=== PATIENT | female | born 1995 | race Two or more races ===

== ENCOUNTER 2016-04-13 01:57 | Emergency (ER) | payer MEDICAID ==
--- NOTE | 2016-04-13 02:10 | EDPHY ---
H & P HPI/ROS: HPI CHIEF COMPLAINT: Right adnexal pain HISTORY OF PRESENT ILLNESS: This patient very pleasant 20-year-old female, who I saw and evaluated for abdominal pain on 03/09/2016 diagnosed ovarian cyst. Patient usually follows up at [facility]. She presents emergency room with severe sudden onset sharp stabbing right adnexal pain with minimal vaginal bleeding. Patient tells me that she has irregular menstrual. She denies being . She tells me that she has had an ovarian cyst on the right side has been followed. She states around midnight tonight she developed sudden onset sharp stabbing pain with ongoing right adnexal pain. No urinary symptoms, no back pain, no right lower quadrant pain, no chest pain or shortness of breath. No fever. No nausea or vomiting. No diarrhea she describes the pain as sharp stabbing right adnexal 6/10 consistent with previous right ovarian cyst. Past Medical History: Ovarian cyst, Past Surgical History: Social History: denies use of drugs alcohol tobacco products Family History:Noncontributory ROS REVIEW OF SYSTEMS: A comprehensive 10 point review of systems is otherwise negative aside from elements mentioned in the history of present illness. Exam Constitutional triage nursing summary reviewed, vital signs reviewed, awake/ alert. Eyes normal conjunctivae and sclera, EOMI, PERRLA. HENT normal inspection, atraumatic, moist mucus membranes, no epistaxis, neck supple/ no meningismus, no raccoon eyes. Respiratory clear to auscultation bilaterally, normal breath sounds, no respiratory distress, no wheezing. Cardiovascular rate normal, regular rhythm, no murmur, no edema, distal pulses normal. Gastrointestinal soft abdomen however there is tenderness in the right adnexa there is no guarding or peritoneal signs, normal bowel sounds, no distension, no pulsatile mass. Genitourinary no CVA tenderness. Musculoskeletal no midline vertebral tenderness, full range of motion, no calf swelling, no tenderness of extremities, no meningismus, good pulses, neurovascularly intact. Skin pink, warm, & dry, no rash, skin atraumatic. Neurologic awake, alert and oriented x 3, AAOx3, moves all 4 extremities equally, motor intact, sensory intact, CN II-XII intact, normal cerebellar, normal vision, normal speech. Psychiatric normal mood/affect. Heme/Lymph/Immune no lymphadenopathy. Differential Diagnosis: Includes but is not limited to in a particular order, ruptured ovarian cyst, hemoperitoneum, ovarian torsion, doubt acute appendicitis Medical Decision Making: This patient had an IV established obtain blood work, urinalysis, test, she will have an ultrasound given that she is tender in her right adnexa. Re-evaluation: Ultrasound of the Pelvis. The results of the study are normal pelvic ultrasound, normal ovaries, no ovarian cyst, no torsion, no free fluid . I discussed the results of this study with the radiologist Dr. Zuniga 0327: re-evaluation at this time this patient is improved with IV Dilaudid she does still have some right adnexal right lower quadrant pain her ultrasound has been reviewed is unremarkable there is no evidence of ovarian cyst, free fluid or abnormality of her pelvis. Given her right lower quadrant pain will perform a CT abdomen pelvis with IV contrast to rule out acute appendicitis. CT scan of the abdomen pelvis with IV contrast. The results of the study are negative for any acute inflammatory process specifically The study was read by Dr. Zuniga I viewed the images myself on the PACS system. 0410: Re-examination at this time is patient is resting comfortably no acute distress abdomen is soft nontender no guarding or peritoneal signs ultrasound is unremarkable, CT scan unremarkable. Urinalysis does indicate she has UTI will place on Keflex she did receive 1 g IV Rocephin here in emergency room. Source: Patient - Medical/Surgical History Hx Asthma: No Hx Chronic Respiratory Disease: No Hx Diabetes: No Hx Cardiac Disease: No Hx Renal Disease: No Hx Cirrhosis: No Hx Alcoholism: No Hx HIV/AIDS: No Hx Splenectomy or Spleen Trauma: No Other PMH: C-SECT - Social History Smoking Status: Never smoked Constitutional: Initial Vital Signs Temperature (C) 36.5 C 04/13/16 02:00 Heart Rate 100 04/13/16 02:00 Respiratory Rate 20 04/13/16 02:00 Blood Pressure 126/85 H 04/13/16 02:00 O2 Sat (%) 95 04/13/16 02:00 O2 Delivery Mode Room Air Allergies/Adverse Reactions: peanut Allergy (Verified 03/09/16 11:23) Home Medications: Medication Instructions Recorded Ondansetron Odt [Zofran Odt 4 mg 4 mg PO Q4 PRN #20 tab 03/06/16 (RX)] Cephalexin [Keflex] 500 mg PO Q6H #28 cap 03/09/16 Hydrocodon-Acetaminophen 5-325 03/09/16 Cephalexin [Keflex] 500 mg PO Q6H #28 cap 04/13/16 Medical Decision Making - Data Points Laboratory Results: Laboratory Results 04/13/16 02:30 04/13/16 02:30 04/13/16 02:30 WBC 8.79 10^3/uL (3.80-9.50) RBC 5.13 10^6/uL (4.18-5.33) Hgb 16.4 H g/dL (12.6-16.3) Hct 48.3 H % (38.0-47.0) MCV 94.2 fL (81.5-99.8) MCH 32.0 pg (27.9-34.1) MCHC 34.0 g/dL (32.4-36.7) RDW 11.9 % (11.5-15.2) Plt Count 217 10^3/uL (150-400) MPV 9.8 fL (8.7-11.7) Neut % (Auto) 57.2 % (39.3-74.2) Lymph % (Auto) 33.7 % (15.0-45.0) [place] % (Auto) 6.0 % (4.5-13.0) Eos % (Auto) 1.9 % (0.6-7.6) Baso % (Auto) 0.7 % (0.3-1.7) Nucleat RBC Rel Count 0.0 % (0.0-0.2) Absolute Neuts (auto) 5.03 10^3/uL (1.70-6.50) Absolute Lymphs (auto) 2.96 10^3/uL (1.00-3.00) Absolute Monos (auto) 0.53 10^3/uL (0.30-0.80) Absolute Eos (auto) 0.17 10^3/uL (0.03-0.40) Absolute Basos (auto) 0.06 10^3/uL (0.02-0.10) Absolute Nucleated RBC 0.00 10^3/uL (0-0.01) Immature Gran % 0.5 % (0.0-1.1) Immature Gran # 0.04 10^3/uL (0.00-0.10) PT 12.6 SEC (12.0-15.0) INR 0.95 (0.83-1.16) APTT 27.6 SEC (23.0-38.0) Sodium 151 H mEq/L (134-144) Potassium 3.6 mEq/L (3.5-5.2) Chloride 111 H mEq/L (97-110) Carbon Dioxide 20 L mEq/l (22-31) Anion Gap 20 mEq/L (8-16) BUN 14 mg/dL (7-23) Creatinine 0.6 mg/dL (0.6-1.0) Estimated GFR > 60 Glucose 106 H mg/dL (70-100) Calcium 9.7 mg/dL (8.5-10.4) Total Bilirubin 0.5 mg/dL (0.1-1.4) Conjugated Bilirubin 0.2 mg/dL (0.0-0.5) Unconjugated Bilirubin 0.3 mg/dL (0.0-1.1) AST 23 IU/L (14-46) ALT 40 IU/L (9-52) Alkaline Phosphatase 124 IU/L (38-126) Total Protein 8.6 H g/dL (6.3-8.2) Albumin 5.1 H g/dL (3.5-5.0) Lipase 118.0 IU/L (23-300) Beta HCG, Qual NEGATIVE Urine Color YELLOW Urine Appearance HAZY Urine pH 5.0 (5.0-7.5) Ur Specific [place] 1.010 (1.002-1.030) Urine Protein NEGATIVE (NEGATIVE) Urine Ketones NEGATIVE (NEGATIVE) Urine Blood 3+ H (NEGATIVE) Urine Nitrate NEGATIVE (NEGATIVE) Urine Bilirubin NEGATIVE (NEGATIVE) Urine Urobilinogen NEGATIVE EU (0.2-1.0) Ur Leukocyte Esterase 1+ H (NEGATIVE) Urine RBC 3-5 H /hpf (0-3) Urine WBC 3-5 H /hpf (0-3) Ur Epithelial Cells TRACE /lpf (NONE-1+) Urine Bacteria TRACE H /hpf (NONE SEEN) Urine Mucus TRACE /lpf (NONE-1+) Ur Culture Indicated? INDICATED H (NI) Urine Glucose NEGATIVE (NEGATIVE) Medications Given: Discontinued Medications Hydromorphone HCl (Dilaudid) 1 mg IVP EDNOW ONE Stop: 04/13/16 02:16 Last Admin: 04/13/16 02:35 Dose: 1 mg Sodium Chloride (Ns) 1,000 mls @ 0 mls/hr IV ONCE ONE PRN Reason: Wide Open Stop: 04/13/16 02:16 Last Admin: 04/13/16 02:35 Dose: 1,000 mls Ceftriaxone Sodium/Dextrose (Rocephin 1 Gm (Premix)) 50 mls @ 100 mls/hr IV EDNOW ONE PRN Reason: Protocol Stop: 04/13/16 03:56 Last Admin: 04/13/16 03:34 Dose: 50 mls Ondansetron HCl (Zofran) 4 mg IVP EDNOW ONE Stop: 04/13/16 02:16 Last Admin: 04/13/16 02:30 Dose: 4 mg Departure - Departure Disposition: Home, Routine, Self-Care Clinical Impression: Abdominal pain Qualifiers: Abdominal location: right lower quadrant Qualifier Code: (R10.31) Right lower quadrant pain UTI (urinary tract infection) Qualifiers: Urinary tract infection type: acute cystitis Hematuria presence: with hematuria Qualifier Code: (N30.01) Acute cystitis with hematuria Condition: Good Instructions: Abdominal Pain (ED) Additional Instructions: 1. Return emergency room if develops any worsening abdominal pain, fever, vomiting. Prescriptions: Cephalexin [Keflex] 500 mg PO Q6H #28 cap
[2016-04-13 02:14] VITALS: O2SAT 95
[2016-04-13] MEDS ORDERED: HYDROmorphONE/DILAUDID 1 MG/ML SYR IVP ONE (02:15)
[2016-04-13] MEDS ORDERED: ONDANSETRON 4 MG/2 ML VIAL IVP ONE (02:15)
[2016-04-13] MEDS ORDERED: NS 1,000 ML IV ONE (02:15)
[2016-04-13 02:39] LABS: COLOR YELLOW; LEUKOCYTE ESTERASE,URINE 1+ (NEGATIVE); NITRITE,URINE NEGATIVE (NEGATIVE)
[2016-04-13 02:43] LABS: % IMMATURE GRANULYOCYTES 0.5 % (0.0-1.1); ABSOLUTE IMMATURE GRANULOCYTES 0.04 10^3/uL (0.00-0.10); ADD DIFF? NO; ADD MORPH? NO; ADD SCAN? NO; ATYPICAL LYMPHOCYTE FLAG 10 (0-99); FRAGMENT RBC FLAG 0 (0-99); HEMATOCRIT 48.3 % (38.0-47.0); HEMOGLOBIN 16.4 g/dL (12.6-16.3); LEFT SHIFT FLG 0 (0-99); LIPEMIA HEMOLYSIS FLAG 90 (0-99); MEAN CELL VOLUME 94.2 fL (81.5-99.8); MEAN PLATELET VOLUME 9.8 fL (8.7-11.7); PLATELET CLUMPS FLAG 0 (0-99); PLATELET COUNT 217 10^3/uL (150-400); RED BLOOD CELL COUNT 5.13 10^6/uL (4.18-5.33); RED CELL DISTRIBUTION WIDTH 11.9 % (11.5-15.2)
[2016-04-13 02:48] LABS: BACTERIA TRACE /hpf (NONE SEEN); MUCUS TRACE /lpf (NONE-1+)
[2016-04-13 03:16] LABS: APTT 27.6 SEC (23.0-38.0); INR 0.95 (0.83-1.16); PROTIME(PATIENT) 12.6 SEC (12.0-15.0)
[2016-04-13 03:29] LABS: ALANINE AMINOTRANSFERASE 40 IU/L (9-52); ALBUMIN 5.1 g/dL (3.5-5.0); ALKALINE PHOSPHATASE 124 IU/L (38-126); ANION GAP 20 mEq/L (8-16); ASPARTATE AMINOTRANSFERASE 23 IU/L (14-46); BILIRUBIN,TOTAL 0.5 mg/dL (0.1-1.4); BILIRUBIN-CONJUGATED 0.2 mg/dL (0.0-0.5); BILIRUBIN-UNCONJUGATED 0.3 mg/dL (0.0-1.1); CALCIUM 9.7 mg/dL (8.5-10.4); CARBON DIOXIDE 20 mEq/l (22-31); CHLORIDE 111 mEq/L (97-110); CREATININE 0.6 mg/dL (0.6-1.0); GLOMERULAR FILTRATION RATE > 60; GLUCOSE 106 mg/dL (70-100); POTASSIUM 3.6 mEq/L (3.5-5.2); SODIUM 151 mEq/L (134-144); TOTAL PROTEIN 8.6 g/dL (6.3-8.2)
[2016-04-13] MEDS ORDERED: IOPAMIDOL (ISOVUE-300) 50 ML VIAL IV ONE (03:38)
[2016-04-13 04:12] VITALS: BP 111/79; PULSE 113; RESP 18
[2016-04-13 04:23] VITALS: TEMP 99
--- NOTE | 2016-04-13 14:22 | US ---
Pelvic Ultrasound April 13, 2016 Indication: Right lower quadrant pain. History of ovarian cyst. Technique: Transabdominal and transvaginal imaging. Findings Transabdominal imaging: The anteverted uterus is normal size, measuring 7.9 cm in length x 4.5 x 3.2 cm. No adnexal mass or free fluid. Transvaginal imaging: The ovaries are normal size with small peripheral follicles and normal blood f low on color Doppler imaging. No ovarian cyst or adnexal mass. The right ovary measures 3.4 x 2.3 x 1 .8 cm. The left ovary measures 3.2 x 1.9 x 1.7 cm. The uterus has a normal homogeneous myometrium. No uterine leiomyoma. The endometrial lining is thin (6 mm). Impression: 1. Normal ovaries. No ovarian cyst or evidence of torsion. 2. No free fluid. 3. Normal uterus. The study was performed as an emergency on-call case and discussed by telephone with Dr. Redd at 3 :00 a.m. The final interpretation is concordant with the original communication.
--- NOTE | 2016-04-13 14:34 | CT ---
CT Scan of the Abdomen and Pelvis (With Contrast) April 13, 2016 Indication: Right lower quadrant pain. Technique: No oral or rectal contrast. 90 mL of Isovue 300 were given intravenously by machine power injection. Multidetector helical CT imaging was performed from the diaphragm to the symphysis pubis . Dose reduction techniques were utilized. Findings: Well visualized normal appendix. Normal ovaries and uterus. No free fluid, abscess, adnexal mass, pneumoperitoneum, free fluid, or lymphadenopathy. The liver, spleen, pancreas, gallbladder, and kidneys are normal. No nephrolithiasis, ureteral calcul i, or hydroureteronephrosis. Urinary bladder is normal. Lung bases are clear. The heart size is normal. The abdominal aorta is normal caliber. Normal bones. Impression: 1. Normal appendix. 2. No free fluid or evidence of ovarian cyst. 3. No hydronephrosis or ureteral calculi. The study was performed as an emergency on-call case and discussed by telephone with Dr. Redd at 4 :09 a.m. The final interpretation is concordant with the original communication.
== END 2016-04-13 04:21 | disposition home or self-care (01) ==
DX: N30.01 Acute cystitis with hematuria (principal); B96.89 Other specified bacterial agents as the cause of diseases classified elsewhere; Z91.010 Allergy to peanuts
CPT/HCPCS: 96365; J0696; J1170; J2405; Q9967

== ENCOUNTER 2016-05-21 13:38 | Observation (INO) | payer MEDICAID ==
[2016-05-21] MEDS ORDERED: NS 1,000 ML IV ONE (13:59)
[2016-05-21] MEDS ORDERED: ONDANSETRON 4 MG/2 ML VIAL IVP ONE (14:00)
[2016-05-21] MEDS ORDERED: HYDROmorphONE/DILAUDID 1 MG/ML SYR IVP ONE ×2 (14:07→17:41)
--- NOTE | 2016-05-21 14:13 | EDPHY ---
H & P Stated Complaint: RLQ abd pain n/v Source: Patient Exam Limitations: No limitations - Personal History LMP (Females 10-55): Extended Cycle BCP/Inj Current Tetanus/Diphtheria Vaccine: Yes - Medical/Surgical History Hx Asthma: No Hx Chronic Respiratory Disease: No Hx Diabetes: No Hx Cardiac Disease: No Hx Renal Disease: No Hx Cirrhosis: No Hx Alcoholism: No Hx HIV/AIDS: No Hx Splenectomy or Spleen Trauma: No Other PMH: C-SECT - Family History Significant Family History: No pertinent family hx - Social History Smoking Status: Never smoked Alcohol Use: None Drug Use: None Time Seen by Provider: 05/21/16 14:09 HPI/ROS: HPI: 20-year-old female presents to emergency department with chief concern right-sided abdominal pain 7/10 that awoke her from sleep last night. Reports associated nausea and vomiting. Reports associated low flank pain bilaterally. Denies fever, chills, URI symptoms, shortness of breath, chest pain, diarrhea, urinary symptoms. Significant past medical history . She is 1 para 1. LMP March 2016. Reports irregular periods. Has Nexplanon. Last p.o. crackers at 9:00 a.m. today. ROS:10 point review of systems is negative other than as stated in HPI (Francy Aaron) - Physical Exam Exam: Temp 36.6, heart rate 100, respiratory rate 20, blood pressure 103/75, 97% on room air General: Awake, alert, calm, cooperative. No acute distress. Head: Normalocephalic. Atraumatic. EENT: PERRLA. EOMI. No pallor or injection. Anicteric. No nystagmus. No injection. Neck: Supple, nontender. No lymphadenopathy. Full range of motion. No meningismus. Respiratory: Breathing unlabored. Breath sounds equal bilaterally and clear to auscultation. No adventitious sounds. CV: Chest nontender, atraumatic. Heart rate regular. No murmur, distal pulses 2+ bilaterally. Brisk cap refill all extremities. GI: Abdomen soft, right upper quadrant, right middle, and right lower quadrant tenderness. Positive rebound. Positive Rovsing. Bowel sounds normoactive and positive x4 quadrants. : Bilateral low flank pain to percussion. Neuro: Alert. Oriented x 3. Speech clear. Nonfocal cranial nerves throughout. Sensation intact all extremities. Skin: Skin warm, dry, intact. No rashes, abrasions, or lacerations. Skin turgor normal. Extremities: Full range of motion in all 4 extremities. Strength 5+ all extremities. (Francy Aaron) Constitutional: Initial Vital Signs Temperature (C) 36.6 C 05/21/16 13:54 Heart Rate 100 05/21/16 13:54 Respiratory Rate 20 05/21/16 13:54 Blood Pressure 103/75 05/21/16 13:54 O2 Sat (%) 97 05/21/16 13:54 O2 Delivery Mode Nasal Cannula O2 (L/minute) 2 Allergies/Adverse Reactions: peanut Allergy (Verified 05/21/16 13:53) Home Medications: Medication Instructions Recorded Acetaminophen [Tylenol ES 500 mg 500 mg PO Q6 PRN 05/21/16 (*)] Etonogestrel [Nexplanon] 68 mg SQ AD 05/21/16 Medical Decision Making - Diagnostics Imaging: Abdomen Retroperitoneal Renal Ultrasound: Indications: Right flank pain Findings: No hydronephrosis, shadowing renal calculi, focal cortical abnormalities or perinephric fluid. Impression: No hydronephrosis. Small post void residual. Dictated By: Daniel Sow MD Ultrasound of the Abdomen, Limited History: Persistent right upper quadrant pain. Impression: Normal right upper quadrant ultrasound. Dictated By: Daniel Sow MD (Francy Aaron) Procedures: 1410: 20-year-old female presents to emergency department with chief concern right-sided abdominal pain. Onset suddenly overnight awakening her from sleep associated with nausea and vomiting. Denies urinary burning or frequency. Only significant past medical history is . IV started. Normal saline hung. Patient given 4 mg IV Zofran, 1 mg IV Dilaudid, normal saline. Urinalysis, labs pending. 1500: White count 8510 with 78.7% neutrophils. Sodium 145, otherwise metabolic panel unremarkable. LFTs and lipase negative. Urinalysis shows 1+ blood, 1-3 RBCs, 1-3 WBCs. Negative nitrate or esterase. Given 4 mg morphine for ongoing pain. Will check a right upper quadrant ultrasound as well as a retroperitoneal to evaluate her right kidney. 1700: Renal ultrasound and right upper quadrant ultrasound negative. Pain 7/ 10. Given 30 mg IV Toradol. 1740: Pain 8/10 given 1 mg additional Dilaudid. Patient will be admitted for pain control. Report given to Neville Garland MD. Bed requested. 1750: Vitals remained stable. (Francy Aaron) Differential Diagnosis: Differential diagnosis includes but is not limited to ectopic , ovarian cyst, ovarian torsion, appendicitis, cholecystitis, kidney stone, pyelonephritis, endometriosis (Francy Aaron) Other Provider: This patient was seen and personally assessed by me as the supervising physician for Francy Aaron NP. Abdomen is soft, right upper quadrant tenderness , no peritoneal signs. I agree with Farncy Aaron's plan. (Catherine Prado) - Data Points Laboratory Results: Laboratory Results 05/21/16 14:21 05/21/16 14:21 05/21/16 05/21/16 05/21/16 14:40 14:40 14:21 WBC RBC Hgb Hct MCV MCH MCHC RDW Plt Count MPV Neut % (Auto) Lymph % (Auto) [place] % (Auto) Eos % (Auto) Baso % (Auto) Nucleat RBC Rel Count Absolute Neuts (auto) Absolute Lymphs (auto) Absolute Monos (auto) Absolute Eos (auto) Absolute Basos (auto) Absolute Nucleated RBC Immature Gran % Immature Gran # Sodium 145 mEq/L H mEq/L (134-144) Potassium 4.0 mEq/L mEq/L (3.5-5.2) Chloride 108 mEq/L mEq/L (97-110) Carbon Dioxide 22 mEq/l mEq/l (22-31) Anion Gap 15 mEq/L mEq/L (8-16) BUN 10 mg/dL mg/dL (7-23) Creatinine 0.6 mg/dL mg/dL (0.6-1.0) Estimated GFR > 60 Glucose 105 mg/dL H mg/dL (70-100) Calcium 9.8 mg/dL mg/dL (8.5-10.4) Total Bilirubin 1.1 mg/dL mg/dL (0.1-1.4) Conjugated Bilirubin 0.3 mg/dL mg/dL (0.0-0.5) Unconjugated Bilirubin 0.8 mg/dL mg/dL (0.0-1.1) AST 19 IU/L IU/L (14-46) ALT 33 IU/L IU/L (9-52) Alkaline Phosphatase 114 IU/L IU/L (38-126) Total Protein 8.0 g/dL g/dL (6.3-8.2) Albumin 4.6 g/dL g/dL (3.5-5.0) Lipase 71.0 IU/L IU/L (23-300) Urine Color PALE YELLOW Urine Appearance CLEAR Urine pH 6.0 (5.0-7.5) Ur Specific [place] 1.009 (1.002-1.030) Urine Protein NEGATIVE (NEGATIVE) Urine Ketones NEGATIVE (NEGATIVE) Urine Blood 1+ H (NEGATIVE) Urine Nitrate NEGATIVE (NEGATIVE) Urine Bilirubin NEGATIVE (NEGATIVE) Urine Urobilinogen NEGATIVE EU EU (0.2-1.0) Ur Leukocyte Esterase NEGATIVE (NEGATIVE) Urine RBC 1-3 /hpf /hpf (0-3) Urine WBC 1-3 /hpf /hpf (0-3) Ur Epithelial Cells TRACE /lpf /lpf (NONE-1+) Urine Mucus TRACE /lpf /lpf (NONE-1+) Urine Glucose NEGATIVE (NEGATIVE) Urine Test NEGATIVE 05/21/16 14:21 WBC 8.51 10^3/uL 10^3/uL (3.80-9.50) RBC 4.96 10^6/uL 10^6/uL (4.18-5.33) Hgb 15.9 g/dL g/dL (12.6-16.3) Hct 45.8 % % (38.0-47.0) MCV 92.3 fL fL (81.5-99.8) MCH 32.1 pg pg (27.9-34.1) MCHC 34.7 g/dL g/dL (32.4-36.7) RDW 11.8 % % (11.5-15.2) Plt Count 218 10^3/uL 10^3/uL (150-400) MPV 10.1 fL fL (8.7-11.7) Neut % (Auto) 78.7 % H % (39.3-74.2) Lymph % (Auto) 16.8 % % (15.0-45.0) [place] % (Auto) 3.6 % L % (4.5-13.0) Eos % (Auto) 0.2 % L % (0.6-7.6) Baso % (Auto) 0.5 % % (0.3-1.7) Nucleat RBC Rel Count 0.0 % % (0.0-0.2) Absolute Neuts (auto) 6.69 10^3/uL H 10^3/uL (1.70-6.50) Absolute Lymphs (auto) 1.43 10^3/uL 10^3/uL (1.00-3.00) Absolute Monos (auto) 0.31 10^3/uL 10^3/uL (0.30-0.80) Absolute Eos (auto) 0.02 10^3/uL L 10^3/uL (0.03-0.40) Absolute Basos (auto) 0.04 10^3/uL 10^3/uL (0.02-0.10) Absolute Nucleated RBC 0.00 10^3/uL 10^3/uL (0-0.01) Immature Gran % 0.2 % % (0.0-1.1) Immature Gran # 0.02 10^3/uL 10^3/uL (0.00-0.10) Sodium Potassium Chloride Carbon Dioxide Anion Gap BUN Creatinine Estimated GFR Glucose Calcium Total Bilirubin Conjugated Bilirubin Unconjugated Bilirubin AST ALT Alkaline Phosphatase Total Protein Albumin Lipase Urine Color Urine Appearance Urine pH Ur Specific [place] Urine Protein Urine Ketones Urine Blood Urine Nitrate Urine Bilirubin Urine Urobilinogen Ur Leukocyte Esterase Urine RBC Urine WBC Ur Epithelial Cells Urine Mucus Urine Glucose Urine Test Medications Given: Discontinued Medications Hydromorphone HCl (Dilaudid) 1 mg IVP EDNOW ONE Stop: 05/21/16 14:08 Last Admin: 05/21/16 14:43 Dose: 1 mg Hydromorphone HCl (Dilaudid) 1 mg IVP EDNOW ONE Stop: 05/21/16 17:42 Last Admin: 05/21/16 17:52 Dose: 1 mg Sodium Chloride (Ns) 1,000 mls @ 0 mls/hr IV ONCE ONE PRN Reason: Wide Open Stop: 05/21/16 14:00 Last Admin: 05/21/16 14:44 Dose: 1,000 mls Ketorolac Tromethamine (Toradol) 30 mg IVP EDNOW ONE Stop: 05/21/16 16:48 Last Admin: 05/21/16 17:11 Dose: 30 mg Morphine Sulfate (Morphine) 4 mg IVP EDNOW ONE Stop: 05/21/16 14:58 Last Admin: 05/21/16 16:28 Dose: 4 mg Ondansetron HCl (Zofran) 4 mg IVP EDNOW ONE Stop: 05/21/16 14:01 Last Admin: 05/21/16 14:44 Dose: 4 mg Departure - Departure Disposition: [facility] Inpatient Acute Clinical Impression: Right-sided abdominal pain of unknown cause Condition: Good
[2016-05-21 14:33] LABS: % IMMATURE GRANULYOCYTES 0.2 % (0.0-1.1); ABSOLUTE IMMATURE GRANULOCYTES 0.02 10^3/uL (0.00-0.10); ADD DIFF? NO; ADD MORPH? NO; ADD SCAN? NO; ATYPICAL LYMPHOCYTE FLAG 10 (0-99); FRAGMENT RBC FLAG 0 (0-99); HEMATOCRIT 45.8 % (38.0-47.0); HEMOGLOBIN 15.9 g/dL (12.6-16.3); LEFT SHIFT FLG 0 (0-99); LIPEMIA HEMOLYSIS FLAG 90 (0-99); MEAN CELL HEMOGLOBIN 32.1 pg (27.9-34.1); MEAN CELL HEMOGLOBIN CONCENTR. 34.7 g/dL (32.4-36.7); MEAN CELL VOLUME 92.3 fL (81.5-99.8); MEAN PLATELET VOLUME 10.1 fL (8.7-11.7); PLATELET CLUMPS FLAG 20 (0-99); PLATELET COUNT 218 10^3/uL (150-400); RED BLOOD CELL COUNT 4.96 10^6/uL (4.18-5.33); RED CELL DISTRIBUTION WIDTH 11.8 % (11.5-15.2)
[2016-05-21 14:52] LABS: COLOR PALE YELLOW; LEUKOCYTE ESTERASE,URINE NEGATIVE (NEGATIVE); NITRITE,URINE NEGATIVE (NEGATIVE)
[2016-05-21 14:57] LABS: MUCUS TRACE /lpf (NONE-1+)
[2016-05-21 14:57] LABS: ALANINE AMINOTRANSFERASE 33 IU/L (9-52); ALBUMIN 4.6 g/dL (3.5-5.0); ALKALINE PHOSPHATASE 114 IU/L (38-126); ANION GAP 15 mEq/L (8-16); ASPARTATE AMINOTRANSFERASE 19 IU/L (14-46); BILIRUBIN,TOTAL 1.1 mg/dL (0.1-1.4); BILIRUBIN-CONJUGATED 0.3 mg/dL (0.0-0.5); BILIRUBIN-UNCONJUGATED 0.8 mg/dL (0.0-1.1); CALCIUM 9.8 mg/dL (8.5-10.4); CARBON DIOXIDE 22 mEq/l (22-31); CHLORIDE 108 mEq/L (97-110); CREATININE 0.6 mg/dL (0.6-1.0); GLOMERULAR FILTRATION RATE > 60; GLUCOSE 105 mg/dL (70-100); SODIUM 145 mEq/L (134-144)
[2016-05-21] MEDS ORDERED: KETOROLAC 30 MG/1 ML SDV IVP ONE (16:47)
--- NOTE | 2016-05-21 19:21 | PDGENHP ---
History and Physical - Chief Complaint Abdominal Pain - History of Present Illness This is a 20 year old female with history of chronic abdominal pain who presents with worsening constant right lower quadrant abdominal pain. Her symptoms began at 0200 today and have been unrelenting. The pain is described as sharp, crampy, 8/10 pain that does not radiate. The pain is better with raising her right arm. She took Tylenol at home without improvement. She has had 3 similar episodes since March of 2016. Last menses was 03/2016 which isn't unusual for her since she has a Nexplanon for contraception. Denies history of STIs. Denies vaginal bleeding or discharge. In the ED she has Received multiple doses of Dilaudid, morphine, and 1 dose of Toradol that have not relieved her symptoms. History Information - Allergies/Home Medication List Allergies/Adverse Reactions: peanut Allergy (Verified 05/21/16 13:53) Home Medications: Acetaminophen [Tylenol ES 500 mg (*)] 500 mg PO Q6 PRN 05/21/16 [Last Taken Unknown] Etonogestrel [Nexplanon] 68 mg SQ AD 05/21/16 [Last Taken Unknown] I have personally reviewed and updated: family history, medical history, social history, surgical history Past Medical History: chronic abdominal pain. resolved gestational diabetes - Surgical History Additional surgical history: sections 7 years ago - Social History Smoking Status: Never smoked Alcohol Use: None Drug Use: None Review of Systems ROS: 10pt was reviewed & negative except for what was stated in HPI & below Physical Exam Temp Pulse Resp BP Pulse Ox 36.6 C 99 18 127/76 H 100 05/21/16 13:54 05/21/16 17:52 05/21/16 17:52 05/21/16 17:52 05/21/16 17:52 O2 (L/minute) 2 Constitutional: no apparent distress, appears nourished, not in pain Eyes: PERRL, anicteric sclera, EOMI Ears, Nose, Mouth, Throat: moist mucous membranes, hearing normal, ears appear normal, no oral mucosal ulcers Cardiovascular: regular rate and rhythym, no murmur, rub, or gallop, No edema Respiratory: no respiratory distress, no rales or rhonchi, clear to auscultation Gastrointestinal: normoactive bowel sounds, soft, non-tender abdomen, no palpable masses, tenderness (mild tenderness to deep palp in rlq), No hepatosplenomegally, No guarding, No rebound Musculoskeletal: full muscle strength, no muscle tenderness, normal joint ROM, no joint effusions Neurologic: AAOx3, CN II-XII Intact, No facial droop Psychiatric: interacting appropriately, not anxious, not encephalopathic, thought process linear Lab Data & Imaging Review 05/21/16 14:21 05/21/16 14: WBC 8.51 10^3/uL (3.80-9.50) 05/21/16 14: RBC 4.96 10^6/uL (4.18-5.33) 05/21/16 14: Hgb 15.9 g/dL (12.6-16.3) 05/21/16 14: Hct 45.8 % (38.0-47.0) 05/21/16 14: MCV 92.3 fL (81.5-99.8) 05/21/16 14: MCH 32.1 pg (27.9-34.1) 05/21/16 14: MCHC 34.7 g/dL (32.4-36.7) 05/21/16 14: RDW 11.8 % (11.5-15.2) 05/21/16 14: Plt Count 218 10^3/uL (150-400) 05/21/16 14: MPV 10.1 fL (8.7-11.7) 05/21/16 14: Neut % (Auto) 78.7 % (39.3-74.2) H 05/21/16 14: Lymph % (Auto) 16.8 % (15.0-45.0) 05/21/16 14: [place] % (Auto) 3.6 % (4.5-13.0) L 05/21/16 14: Eos % (Auto) 0.2 % (0.6-7.6) L 05/21/16 14:21 Baso % (Auto) 0.5 % (0.3-1.7) 05/21/16 14: Nucleat RBC Rel Count 0.0 % (0.0-0.2) 05/21/16 14: Absolute Neuts (auto) 6.69 10^3/uL (1.70-6.50) H 05/21/16 14:21 Absolute Lymphs (auto) 1.43 10^3/uL (1.00-3.00) 05/21/16 14:21 Absolute Monos (auto) 0.31 10^3/uL (0.30-0.80) 05/21/16 14:21 Absolute Eos (auto) 0.02 10^3/uL (0.03-0.40) L 05/21/16 14:21 Absolute Basos (auto) 0.04 10^3/uL (0.02-0.10) 05/21/16 14:21 Absolute Nucleated RBC 0.00 10^3/uL (0-0.01) 05/21/16 14: Immature Gran % 0.2 % (0.0-1.1) 05/21/16 14:21 Immature Gran # 0.02 10^3/uL (0.00-0.10) 05/21/16 14:21 Sodium 145 mEq/L (134-144) H 05/21/16 14:21 Potassium 4.0 mEq/L (3.5-5.2) 05/21/16 14:21 Chloride 108 mEq/L (97-110) 05/21/16 14:21 Carbon Dioxide 22 mEq/l (22-31) 05/21/16 14:21 Anion Gap 15 mEq/L (8-16) 05/21/16 14:21 BUN 10 mg/dL (7-23) 05/21/16 14:21 Creatinine 0.6 mg/dL (0.6-1.0) 05/21/16 14:21 Estimated GFR > 60 05/21/16 14:21 Glucose 105 mg/dL (70-100) H 05/21/16 14:21 Calcium 9.8 mg/dL (8.5-10.4) 05/21/16 14:21 Total Bilirubin 1.1 mg/dL (0.1-1.4) 05/21/16 14:21 Conjugated Bilirubin 0.3 mg/dL (0.0-0.5) 05/21/16 14:21 Unconjugated Bilirubin 0.8 mg/dL (0.0-1.1) 05/21/16 14:21 AST 19 IU/L (14-46) 05/21/16 14:21 ALT 33 IU/L (9-52) 05/21/16 14:21 Alkaline Phosphatase 114 IU/L (38-126) 05/21/16 14:21 Total Protein 8.0 g/dL (6.3-8.2) 05/21/16 14:21 Albumin 4.6 g/dL (3.5-5.0) 05/21/16 14:21 Lipase 71.0 IU/L (23-300) 05/21/16 14:21 Urine Color PALE YELLOW 05/21/16 14:40 Urine Appearance CLEAR 05/21/16 14:40 Urine pH 6.0 (5.0-7.5) 05/21/16 14:40 Ur Specific [place] 1.009 (1.002-1.030) 05/21/16 14:40 Urine Protein NEGATIVE (NEGATIVE) 05/21/16 14:40 Urine Ketones NEGATIVE (NEGATIVE) 05/21/16 14:40 Urine Blood 1+ (NEGATIVE) H 05/21/16 14:40 Urine Nitrate NEGATIVE (NEGATIVE) 05/21/16 14:40 Urine Bilirubin NEGATIVE (NEGATIVE) 05/21/16 14:40 Urine Urobilinogen NEGATIVE EU (0.2-1.0) 05/21/16 14:40 Ur Leukocyte Esterase NEGATIVE (NEGATIVE) 05/21/16 14:40 Urine RBC 1-3 /hpf (0-3) 05/21/16 14:40 Urine WBC 1-3 /hpf (0-3) 05/21/16 14:40 Ur Epithelial Cells TRACE /lpf (NONE-1+) 05/21/16 14:40 Urine Mucus TRACE /lpf (NONE-1+) 05/21/16 14:40 Urine Glucose NEGATIVE (NEGATIVE) 05/21/16 14:40 Urine Test NEGATIVE 05/21/16 14:40 Imaging Review: abd ultrasound Impression: No hydronephrosis. Small post void residual. Impression: Normal right upper quadrant ultrasound. abd ct done 04/2016 reviewed Impression: 1. Normal appendix. 2. No free fluid or evidence of ovarian cyst. 3. No hydronephrosis or ureteral calculi. Assessment & Plan Assessment: 20 y/o female with history of chronic ruq abd pain presents with #acute on chronic ruq abd pain ddx functional abdominal pain syndrome vs abdominal wall spasm vs endometriosis vs less likely gallbladder dyskinesia #mild hypernatremia from dehydration Plan: -place in observation -try to limit iv narcotic pain medications -trial Ativan -consider [employer]/surgery consult in AM -consider HIDA scan as an outpatient once off narcotics -IVF
[2016-05-21] MEDS ORDERED: ACETAMINOPHEN 325 MG TAB PO PRN (19:43)
[2016-05-21] MEDS ORDERED: LORazepam 1 MG TAB PO PRN (19:43)
[2016-05-21] MEDS ORDERED: ONDANSETRON 4 MG/2 ML VIAL IVP PRN (19:43)
[2016-05-21] MEDS ORDERED: PROMETHAZINE HCL 25 MG/ML INJ IVP PRN (19:43)
[2016-05-21] MEDS ORDERED: Etonogestrel [Nexplanon] 68 MG SQ SCH (19:45)
[2016-05-21] MEDS: D5W 1/2 NS W/ 20 KCl/L 1,000 ML IV SCH (20:28)
[2016-05-21] MEDS: oxyCODONE IR 5 MG TAB PO PRN (21:54)
[2016-05-21] MEDS: KETOROLAC 30 MG/1 ML SDV IVP PRN (23:32)
[2016-05-22] MEDS: oxyCODONE IR 5 MG TAB PO PRN (03:03)
[2016-05-22] MEDS: D5W 1/2 NS W/ 20 KCl/L 1,000 ML IV SCH (05:01)
[2016-05-22] MEDS: KETOROLAC 30 MG/1 ML SDV IVP PRN (05:48)
[2016-05-22] MEDS ORDERED: DICYCLOMINE 10 MG CAP PO PRN (10:27)
[2016-05-22] MEDS ORDERED: LACTULOSE 20 GM/30 ML UDCUP PO PRN (10:28)
[2016-05-22] MEDS ORDERED: SENNOSIDES/DOCUSATE SODIUM TAB PO SCH (10:28)
[2016-05-22] MEDS ORDERED: POLYETHYLENE GLYCOL 3350 17 GM PKT PO PRN (10:28)
[2016-05-22] MEDS ORDERED: MAGNESIUM HYDROXIDE 30 ML UDCUP PO PRN (10:28)
[2016-05-22] MEDS ORDERED: BISACODYL 10 MG SUPP PR PRN (10:28)
--- NOTE | 2016-05-22 15:39 | PDDCSUM ---
Discharge Summary Discharge Summary: DISCHARGE SUMMARY FOLLOW-UP ITEMS: Follow-up abdominal symptoms DATE OF ADMISSION: 05/21/2016 DATE OF DISCHARGE: 05/22/16 DISCHARGE DIAGNOSES: 1. Acute abdominal pain 2. 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 Acute urinary retention CONSULTATIONS: None PROCEDURES / IMAGING: Right upper quadrant ultrasound and lower abdominal ultrasound neither which demonstrating any abnormalities CHIEF COMPLAINT: Acute abdominal pain SUBJECTIVE: Patient reports she does not have any uncontrolled abdominal pain and she is urinating well PHYSICAL EXAM ON DISCHARGE: Systolic blood pressure is 1/20, heart rate 80, afebrile overnight, satting well on room air, bowel sounds are reduced, there is no tenderness to palpation , she does have bladder fullness prior to Schreiber catheterization LABS ON DISCHARGE: Normal liver panel, normal lipase HOSPITAL COURSE BY PROBLEM: 1. Acute abdominal pain. Suspect this is secondary to a functional pain syndrome as patient's liver panel is unremarkable, lipase is normal, abdominal ultrasound demonstrates no abnormalities, the patient's symptomatology is self limited. Her urinalysis did not demonstrate any evidence of urinary tract infection or kidney stone. She did respond to supportive care which was complicated by acute urinary retention. 2. 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 Patient has had previous episodes of nonspecific abdominal pain without any definitive diagnosis. Suspected she may have functional pain syndrome and I would recommend that her primary care provider continue ruling out other potential etiologies as an outpatient. In the interim, I have recommended that she utilize Bentyl as an antispasmodic pain medication. 3. Acute urinary retention. Secondary to opiates received for symptom control, patient required straight catheterization x1 and then she was able to successfully void thereafter. DISCHARGE MEDICATIONS: Please see official discharge medication reconciliation sheet in chart , Bentyl 10-20 mg as needed up to 4 times daily, 40 tabs prescribed. DISCHARGE INSTRUCTIONS: Patient should follow up with her primary care provider at the [facility].
[2016-05-22 15:48] VITALS: BP 106/67; PULSE 81; RESP 18; TEMP 97.7; O2SAT 96
== END 2016-05-22 17:10 | disposition home or self-care (01) ==
LOC: F3E 19:56
PROVIDERS: ADMIT Family Medicine; ATTEND Internal Medicine
DX: R10.11 Right upper quadrant pain (principal); R33.9 Retention of urine, unspecified
CPT/HCPCS: 76705; 76770; G0378; 96374; J1170; J1885; J2405

== ENCOUNTER → 2016-06-17 | Outpatient (CLI) | payer MEDICAID | LOC: BRMIMAGING 11:13 | PROVIDERS: ATTEND Family Medicine | DX: R10.9 Unspecified abdominal pain (principal) | CPT/HCPCS: 76856-PO ==

== ENCOUNTER 2017-03-19 09:18 | Emergency (ER) | payer OTHER, MEDICAID ==
[2017-03-19] MEDS ORDERED: ONDANSETRON 4 MG/2 ML VIAL IVP ONE (09:27)
[2017-03-19] MEDS ORDERED: NS 1,000 ML IV ONE ×2 (09:27→11:07)
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
[2017-03-19 09:39] LABS: % IMMATURE GRANULYOCYTES 0.8 % (0.0-1.1); ABSOLUTE IMMATURE GRANULOCYTES 0.06 10^3/uL (0.00-0.10); ADD DIFF? NO; ADD MORPH? NO; ADD SCAN? NO; ATYPICAL LYMPHOCYTE FLAG 20 (0-99); FRAGMENT RBC FLAG 0 (0-99); HEMATOCRIT 45.8 % (38.0-47.0); HEMOGLOBIN 16.1 g/dL (12.6-16.3); LEFT SHIFT FLG 0 (0-99); LIPEMIA HEMOLYSIS FLAG 90 (0-99); MEAN CELL HEMOGLOBIN 32.5 pg (27.9-34.1); MEAN CELL HEMOGLOBIN CONCENTR. 35.2 g/dL (32.4-36.7); MEAN CELL VOLUME 92.5 fL (81.5-99.8); MEAN PLATELET VOLUME 10.4 fL (8.7-11.7); PLATELET CLUMPS FLAG 30 (0-99); PLATELET COUNT 212 10^3/uL (150-400); RED BLOOD CELL COUNT 4.95 10^6/uL (4.18-5.33); RED CELL DISTRIBUTION WIDTH 12.1 % (11.5-15.2)
[2017-03-19 09:40] VITALS: TEMP 98.6
[2017-03-19 09:53] LABS: ALANINE AMINOTRANSFERASE 33 IU/L (9-52); ALBUMIN 4.7 g/dL (3.5-5.0); ALKALINE PHOSPHATASE 108 IU/L (38-126); ANION GAP 15 mEq/L (8-16); ASPARTATE AMINOTRANSFERASE 22 IU/L (14-46); BILIRUBIN,TOTAL 0.7 mg/dL (0.1-1.4); BILIRUBIN-CONJUGATED 0.2 mg/dL (0.0-0.5); BILIRUBIN-UNCONJUGATED 0.5 mg/dL (0.0-1.1); CALCIUM 9.6 mg/dL (8.5-10.4); CARBON DIOXIDE 21 mEq/l (22-31); CHLORIDE 107 mEq/L (97-110); CREATININE 0.7 mg/dL (0.6-1.0); GLOMERULAR FILTRATION RATE > 60; GLUCOSE 96 mg/dL (70-100); POTASSIUM 3.7 mEq/L (3.5-5.2); SODIUM 143 mEq/L (134-144); TOTAL PROTEIN 7.8 g/dL (6.3-8.2)
[2017-03-19 10:36] VITALS: RESP 18
[2017-03-19] MEDS ORDERED: IOPAMIDOL (ISOVUE-300) 100 ML BTL ONE (11:20)
[2017-03-19 12:27] VITALS: BP 117/73; PULSE 94; O2SAT 97
== END 2017-03-19 13:07 | disposition home or self-care (01) ==
LOC: EDUNIT#
DX: S83.92XA Sprain of unspecified site of left knee, initial encounter (principal); S20.211A Contusion of right front wall of thorax, initial encounter; Z91.010 Allergy to peanuts; V49.49XA Driver injured in collision with other motor vehicles in traffic accident, initial encounter; Y92.410 Unspecified street and highway as the place of occurrence of the external cause; Y93.89 Activity, other specified
CPT/HCPCS: 96374; J2405; Q9967

== ENCOUNTER 2017-06-13 11:31 | Emergency (ER) | payer MEDICAID, OTHER ==
[2017-06-13 11:39] VITALS: TEMP 99.1; O2SAT 94
--- NOTE | 2017-06-13 12:25 | EDPHY ---
H & P Stated Complaint: ST starting , swollen tonsils, coughing up blood Time Seen by Provider: 06/13/17 11:46 HPI/ROS: CHIEF COMPLAINT: Sore throat, cough, scant hemoptysis HISTORY OF PRESENT ILLNESS: Patient presents to the ED with 3 days of sore throat, cough and scant hemoptysis. The patient reports that she is not on any blood thinners. She denies asymmetric calf pain or swelling. She denies prior history of PE or DVT. She denies pleuritic chest pain. Her chief complaint really is fairly significant bilateral odynophagia. She denies additional acute complaints. REVIEW OF SYSTEMS: A comprehensive 10 point review of systems is otherwise negative aside from elements mentioned in the history of present illness. Source: Patient Exam Limitations: No limitations - Personal History LMP (Females 10-55): 1-7 Days Ago Current Tetanus/Diphtheria Vaccine: Yes Current Tetanus Diphtheria and Acellular Pertussis (TDAP): Yes Tetanus Vaccine Date: < 10 years - Medical/Surgical History Hx Asthma: No Hx Chronic Respiratory Disease: No Hx Diabetes: No Hx Cardiac Disease: No Hx Renal Disease: No Hx Cirrhosis: No Hx Alcoholism: No Hx HIV/AIDS: No Hx Splenectomy or Spleen Trauma: No Other PMH: C-SECT - Social History Smoking Status: Never smoked - Physical Exam Exam: General Appearance: Alert, no distress Eyes: Pupils equal and round no pallor or injection ENT, Mouth: Pharyngeal erythema, no exudate, no peritonsillar mass Respiratory: There are no retractions, lungs are clear to auscultation Cardiovascular: Tachycardic Gastrointestinal: Abdomen is soft and nontender, no masses, bowel sounds normal Neurological: 5/5 strength noted all 4 extremities Skin: Warm and dry, no rashes Musculoskeletal: Neck is supple nontender Extremities: symmetrical, full range of motion Constitutional: Initial Vital Signs Temperature (C) 37.3 C 06/13/17 11:36 Heart Rate 134 H 06/13/17 11:36 Respiratory Rate 20 06/13/17 11:36 Blood Pressure 94/78 L 06/13/17 11:36 O2 Sat (%) 94 06/13/17 11:36 O2 Delivery Mode Room Air Allergies/Adverse Reactions: peanut Allergy (Verified 06/13/17 11:36) Home Medications: Medication Instructions Recorded NK [No Known Home Meds] 06/13/17 Medical Decision Making - Diagnostics Imaging Results: Imaging Impressions Chest X-Ray 06/13/17 12:17 Impression: Prominence of perihilar interstitial markings and peribronchial cuffing. Findings are nonspecific but can be seen with bronchitis, reactive airway disease, or viral process. ED Course/Re-evaluation: The patient presents to the ED with cough, mild hemoptysis, sore throat and congestion. The patient has no risk factors for a PE or DVT. The patient was noted to have some pharyngeal erythema on exam. Rapid strep test is negative. There is no evidence of a peritonsillar abscess or mass clinically. Chest x- ray demonstrates no evidence of an obvious pneumonia. The patient has had symptoms for at least 3 days. Influenza testing has not been pursued as Tamiflu would be unhelpful. At this point time the patient will be treated for acute bronchitis with albuterol. I have advised her to follow up with her primary care provider at [facility] for any ongoing symptoms of hemoptysis on improved after attended 14 days. She has been advised to return to the ED for severe, abscesses, markedly worsening symptoms, dyspnea or other concerns. The patient presents to the ED clearly with infectious symptoms of sore throat, rhinorrhea, cough and congestion. I doubt thromboembolic disease as an explanation for her presenting symptoms today. Differential Diagnosis: Differential diagnosis considered includes asthma, bronchitis, pneumonia - Data Points Laboratory Results: 06/13/17 06/13/17 12:20 12:00 Group A Strep Screen NEGATIVE (NEGATIVE) Group A Strep DNA Pending Departure - Departure Disposition: Home, Routine, Self-Care Clinical Impression: Bronchitis Condition: Good Instructions: Acute Bronchitis (ED) Additional Instructions: 1. I recommend the use of an albuterol inhaler up to every 4 hr as needed for cough. 2. I do believe the bleeding you noticed is secondary to a viral infection. If this is unimproved I do recommend following up with your primary care provider within the next 3 weeks as further workup may be indicated. 3. Please return to the ED for high fever, markedly worsening symptoms, difficulty breathing or other concerns. Referrals: [facility],. [Clinic] - As per Instructions
[2017-06-13 14:15] VITALS: BP 103/73; PULSE 108; RESP 16
[2017-06-14 18:24] LABS: GROUP A STREP DNA (THROAT) POSITIVE (NEGATIVE)
== END 2017-06-13 14:14 | disposition home or self-care (01) ==
DX: J40 Bronchitis, not specified as acute or chronic (principal); Z91.010 Allergy to peanuts

== ENCOUNTER 2018-01-21 19:21 | Emergency (ER) | payer MEDICAID ==
--- NOTE | 2018-01-21 20:25 | EDPHY ---
H & P Stated Complaint: Dizziness, lightheaded, hand cramps, numbness, hx panic attack Source: Patient Exam Limitations: No limitations - Personal History LMP (Females 10-55): Now Current Tetanus Diphtheria and Acellular Pertussis (TDAP): Yes Tetanus Vaccine Date: < 10 years - Medical/Surgical History Hx Asthma: No Hx Chronic Respiratory Disease: No Hx Diabetes: No Hx Cardiac Disease: No Hx Renal Disease: No Hx Cirrhosis: No Hx Alcoholism: No Hx HIV/AIDS: No Hx Splenectomy or Spleen Trauma: No Other PMH: C-SECT - Social History Smoking Status: Never smoked Time Seen by Provider: 01/21/18 20:12 HPI/ROS: HPI: This is a 22-year-old female who presents with Chief Complaint: Dizziness, lightheaded, hand cramps, numbness, hx panic attack Location: body Quality: Dizziness, lightheadedness, hand hands, numbness Duration: Several hours prior to arrival Signs and Symptoms: no shortness of breath at rest, no shortness of breath on exertion, no cough, no chest pain, no palpitations, no lower extremity edema, no wheezing, no orthopnea, no paroxysmal nocturnal dyspnea, no fever, no injury/ trauma, no hemoptysis, + carpal pedal spasms Timing: Acute on Severity: Moderate Context: Patient reports that while at work today she started to experience lightheadedness but denies that the room is spinning, accompanied by bilateral hand cramping and numbness. She reports that she felt anxious and started to breathe rapidly. She denies any fever, cough, wheezing, chest pain, palpitation. Currently on menses. She has a history of anxiety and 2 panic attacks in the past. No recent injury, trauma. Modifying Factors: None Comment: ROS: A comprehensive 10 system review of systems is otherwise negative aside from elements mentioned in the history of present illness. MEDICAL/SURGICAL/SOCIAL HISTORY: Medical history: Anxiety. Does not take any regular medications. Surgical history: Social history: Nonsmoker, employed CONSTITUTIONAL: Slightly anxious but polite and cooperative extremely well- appearing young adult female, awake and alert, no obvious distress HEENT: Atraumatic and normocephalic, PERRL, EOMI. Nares patent; no rhinorrhea; no nasal mucosal edema. Tympanic membranes clear. Oropharynx clear, no exudate and moist pink mucosa. Airway patent. No lymphadenopathy. NECK: supple, no midline tenderness, flexion 45 degrees, extension 45 degrees, right and left lateral flexion 45 degrees. No meningismus. Cardiovascular: Normal S1/S2, tachycardia, regular rhythm, without murmur rub or gallop. PULMONARY/CHEST: Symmetrical and nontender. Clear to auscultation bilaterally. Good air movement. No accessory muscle usage. ABDOMEN: Soft, nondistended, nontender, no rebound, no guarding, no peritoneal signs, no masses or organomegaly. No CVAT. EXTREMITIES: 2/2 pulses, strength 5/5, bilateral SHOULDER: Arc test abduction to 180, abduction to 45, horizontal flexion 130, horizontal extension to 45 , deltoid strength 5/5. No pain with Neer test/Santos test (impingement). No Tenderness to palpation over AC joint. Bilateral ELBOW: Full extension to 180 , flexion to 150, no tenderness over medial epicondyle, no tenderness over lateral epicondyle, no effusion. Bilateral WRIST: Extension to 70, flexion to 80, radial deviation to 20 degree, ulnar deviation to 30, no scaphoid tenderness, no tenderness over ulnar styloid, no tenderness over radial styloid , no pain with Andi test, no pain with Phalen test, no pain with Tinel test. no deformities, no clubbing, no cyanosis or edema. NEUROLOGICAL: no focal neuro deficits. GCS 15. SKIN: Warm and dry, no erythema. no rash. Good capillary refill. (Stefanie Chun) Constitutional: Initial Vital Signs Temperature (C) 37.0 C 01/21/18 19:26 Heart Rate 110 H 01/21/18 19:26 Respiratory Rate 18 01/21/18 19:26 Blood Pressure 107/91 H 01/21/18 19:26 O2 Sat (%) 95 01/21/18 19:26 O2 Delivery Mode Room Air Allergies/Adverse Reactions: peanut Allergy (Verified 01/21/18 19:29) Home Medications: Medication Instructions Recorded Albuterol [Ventolin Hfa Inhaler] 2 puffs IH QID PRN #1 mdi 06/13/17 Medical Decision Making - Diagnostics EKG Interpretation: 12 lead EKG: Indication: Dizziness Rhythm: Sinus tachycardia, rate 115 beats per minute [place]: Normal Intervals: Normal QRS: Normal ST segments: Normal INTERPRETATION: No acute ischemic changes, no arrhythmias The 12 lead EKG was interpreted by myself and with attending. (Stefanie Chun) ED Course/Re-evaluation: Vital signs reviewed and show mild tachycardia upon arrival. Afebrile. EKG my read shows sinus tachycardia with rate of 115 beats per minute. No acute ischemic changes. No arrhythmias. Laboratory studies, IV fluids and IV medications ordered Given 1 L normal saline and IV Ativan 1 mg Cervical exam is benign and no imaging is indicated. Symptoms are consistent with anxiety or panic disorder. 2117: Reassessed patient reports 50% relief of symptoms. Reports that the numbness in her hands have resolved but now she feels numb from her waist down. IV Ativan 1 mg, Tylenol 1000 mg, 1 L normal saline for a total of 2 L now ordered. 2153: Labs reviewed. No signs of anemia/platelet dysfunction/MONSERRAT/electrolyte imbalance/VTE/. Mild leukocytosis noted. 2244: Reassessed patient who reports 100% relief of symptoms. Vital signs improved at discharge. Follow up with [facility] in 1 week. This patient was seen under the supervision of my secondary supervising physician. I evaluated care for this patient independently. Discussed this patient with Dr. Watson. (Stefanie Chun) Differential Diagnosis: Dizziness including but not limited to peripheral and central causes of vertigo , orthostatic causes including dehydration, and blood loss. (Stefanie Chun) Other Provider: The patient was evaluated and managed by the Physician Bumper Machine Operator. My co- signature indicates that I have reviewed this chart and I agree with the findings and plan of care as documented. I am the secondary supervising physician. (Sandi Watson) - Data Points Laboratory Results: Laboratory Results 01/21/18 20:32 01/21/18 20:32 Medications Given: Discontinued Medications Acetaminophen (Tylenol) 1,000 mg PO EDNOW ONE Stop: 01/21/18 21:32 Last Admin: 01/21/18 21:32 Dose: 1,000 mg Sodium Chloride (Ns) 1,000 mls @ 0 mls/hr IV EDNOW ONE; Wide Open PRN Reason: Protocol Stop: 01/21/18 20:29 Last Admin: 01/21/18 20:36 Dose: 1,000 mls Sodium Chloride (Ns) 1,000 mls @ 0 mls/hr IV ONCE ONE PRN Reason: Wide Open Stop: 01/21/18 21:33 Last Admin: 01/21/18 21:33 Dose: 1,000 mls Lorazepam (Ativan Injection) 1 mg IVP EDNOW ONE Stop: 01/21/18 20:29 Last Admin: 01/21/18 20:37 Dose: 1 mg Lorazepam (Ativan Injection) 1 mg IVP EDNOW ONE Stop: 01/21/18 21:19 Last Admin: 01/21/18 21:25 Dose: 1 mg Departure - Departure Disposition: Home, Routine, Self-Care Clinical Impression: Anxiety, Sinus tachycardia Condition: Good Instructions: Anxiety (ED) Additional Instructions: Consume a minimum of 8-10 glasses of water or electrolyte fluid replacement drinks that include Gatorade, Powerade, Pedialyte. Refrain from using caffeine. [facility] follow up [facility] in 1 week for close re-evaluation. Referrals: [facility],. [Clinic] - As per Instructions
[2018-01-21] MEDS ORDERED: NS 1,000 ML IV ONE ×2 (20:28→21:32)
[2018-01-21] MEDS ORDERED: LORazepam 2 MG/ML INJ IVP ONE ×2 (20:28→21:18)
[2018-01-21 20:44] LABS: PLATELET COUNT 181 10^3/uL (150-400)
[2018-01-21] MEDS ORDERED: ACETAMINOPHEN 500 MG TAB ONE (21:29)
[2018-01-21] MEDS ORDERED: ACETAMINOPHEN 500 MG TAB PO ONE (21:31)
[2018-01-21 22:57] VITALS: BP 88/53
--- NOTE | 2018-01-21 23:59 | CPEKG ---
Test Reason : OPEN Blood Pressure : / mmHG Vent. Rate : 115 BPM Atrial Rate : 115 BPM P-R Int : 125 ms QRS Dur : 081 ms QT Int : 302 ms P-R-T Axes : 067 069 022 degrees QTc Int : 418 ms Sinus tachycardia Probable left atrial enlargement Confirmed by Ernie Redd ([id number]) on 01/21/2018 11:59:07 PM Referred By: Confirmed By:Ernie Redd
== END 2018-01-21 23:06 | disposition home or self-care (01) ==
DX: F41.9 Anxiety disorder, unspecified (principal); R00.0 Tachycardia, unspecified
CPT/HCPCS: 96374; J2060